=== PATIENT | male | born 1960 | race Caucasian/White ===

== ENCOUNTER 2016-12-29 14:22 | Emergency (ER) | payer BC, OTHER ==
[2016-12-29 14:49] VITALS: TEMP 98.3; O2SAT 97
--- NOTE | 2016-12-29 16:18 | RAD ---
PROCEDURE: Cervical Spine Radiographs. HISTORY: Pain. COMPARISON: None. FINDINGS: BONES: There is reversal the cervical curvature without fracture or spondylolisthesis identified. Multilevel spondylosis is castrate anteriorly at the mid to inferior cervical spine. No suspicious lytic or blastic changes are identified. The odontoid process appears intact. DISC SPACES: Diminished at C4-5, C5-6 and C6-7 is well C7-T1. SOFT TISSUES: Normal. No prevertebral soft tissue swelling. OTHER FINDINGS: None. IMPRESSION: Reversal of cervical curvature. No fracture or spondylolisthesis. Multilevel cervical spondylosis identified.
[2016-12-29] MEDS ORDERED: Naproxen 550 mg Tab PO STA (16:23)
[2016-12-29] MEDS ORDERED: Naproxen 550 mg Tab PO ONE (16:25)
--- NOTE | 2016-12-29 16:25 | C.PDOC ---
History Of Present Illness Patient c/o pain to the bilateral sides of neck and shoulders over the past several days. 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 Denies weakness, numbness, headache, or any other complaints. Time Seen by Provider: 12/29/16 14:54 Chief Complaint (Nursing): Back Pain History Per: Patient History/Exam Limitations: no limitations Onset/Duration Of Symptoms: Days (Several) Current Symptoms Are (Timing): Still Present Quality Of Discomfort: "Pain" Severity: Mild Associated Symptoms: denies: Incontinence, New Weakness, New Numbness Exacerbating Factor(s): Movement Recent travel outside of the [place]: No Additional History Per: Patient Past Medical History Reviewed: Historical Data, Nursing Documentation, Vital Signs Vital Signs: Last Vital Signs Temp 98.3 F 12/29/16 14:43 Pulse 82 12/29/16 16:25 Resp 18 12/29/16 16:25 BP 126/78 12/29/16 16:25 Pulse Ox 97 12/29/16 18:16 Family History: States: No Known Family Hx - Social History Hx Tobacco Use: Yes Hx Alcohol Use: No Hx Substance Use: No - Immunization History Hx Tetanus Toxoid Vaccination: No Hx Influenza Vaccination: No Review Of Systems Except As Marked, All Systems Reviewed And Found Negative. Musculoskeletal: Positive for: Neck Pain, Shoulder Pain Neurological: Negative for: Weakness, Numbness, Headache Physical Exam - Physical Exam Appears: Non-toxic, No Acute Distress, Other (Appears slightly kyphotic) Skin: Warm, Dry Head: Atraumatic, Normacephalic Eye(s): bilateral: Normal Inspection Oral Mucosa: Moist Neck: Normal ROM, No Midline Cervical Tenderness, Paracervical Tenderness ( Bilateral), No Step Off Deformity, Supple Cardiovascular: Rhythm Regular Respiratory: Normal Breath Sounds Extremity: Normal ROM Neurological/Psych: Oriented x3, Normal Speech, Normal Cognition, Normal Motor, Normal Sensation, Other (No focal deficit) Gait: Steady ED Course And Treatment O2 Sat by Pulse Oximetry: 97 (RA) Pulse Ox Interpretation: Normal - Other Rad XRAY Cervical spine X-Ray: Viewed By Me, Read By Radiologist Interpretation: PROCEDURE: Cervical Spine Radiographs. HISTORY: Pain. COMPARISON: None. FINDINGS: BONES: There is reversal the cervical curvature without fracture or spondylolisthesis identified. Multilevel spondylosis is castrate anteriorly at the mid to inferior cervical spine. No suspicious lytic or blastic changes are identified. The odontoid process appears intact. DISC SPACES: Diminished at C4-5, C5-6 and C6-7 is well C7-T1. SOFT TISSUES: Normal. No prevertebral soft tissue swelling. OTHER FINDINGS: None. IMPRESSION: Reversal of cervical curvature. No fracture or spondylolisthesis. Multilevel cervical spondylosis identified. Medical Decision Making Medical Decision Making: xrays are negative. Patient is ambulatory and without neuro deficits. Disposition - Disposition Referrals: Arnav Castro MD [Non-Staff] - Disposition: HOME/ ROUTINE Disposition Time: 16:23 Condition: GOOD Additional Instructions: Follow up with the medical doctor within 1-2 days. Return if worsened. Prescriptions: Cyclobenzaprine [Flexeril] 5 mg PO TID #21 tab Naproxen [Naprosyn] 500 mg PO BID #20 tab Instructions: Cervical Strain (DC) Forms: [facility] (Armenian), Work Excuse - Clinical Impression Clinical Impression: Cervical strain - Scribe Statement The provider has reviewed the documentation as recorded by the Scribe Gabby terrell All medical record entries made by the Scribe were at my direction and personally dictated by me. I have reviewed the chart and agree that the record accurately reflects my personal performance of the history, physical exam, medical decision making, and the department course for this patient. I have also personally directed, reviewed, and agree with the discharge instructions and disposition.
[2016-12-29 16:53] VITALS: BP 126/78; PULSE 82; RESP 18
== END 2016-12-29 16:30 | disposition home or self-care (01) ==
LOC: C.ER 14:22
DX: S16.1XXA Strain of muscle, fascia and tendon at neck level, initial encounter (principal); X58.XXXA Exposure to other specified factors, initial encounter

== ENCOUNTER 2017-07-16 10:47 | Emergency (ER) | payer BC ==
[2017-07-16] MEDS ORDERED: Naproxen 550 mg Tab PO STA (11:42)
[2017-07-16] MEDS ORDERED: Naproxen 550 mg Tab PO ONE (11:54)
--- NOTE | 2017-07-16 12:59 | RAD ---
Lumbar spine three views History: Low back pain. Comparison: None available. Findings: Minimal dextroscoliotic curvature of the upper lumbar spine. Mild paravertebral osteophytosis in the mid lower lumbar spine. Calcified phleboliths the pelvis. Question minimal retrolisthesis of T12 on L1. Disc space narrowing with some mild anterior osteophytosis within the lower thoracic and lower lumbar spine. Mild endplate sclerosis within the L2-3 level. Impression: Degenerative changes in the lumbar spine. If pain persists, consider MRI.
--- NOTE | 2017-07-16 13:03 | C.PDOC ---
History Of Present Illness 57 year old male presents to the ED for evaluation of lower back pain which has been intermittent for the past week. 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 Patient states he feels back stiffness when he wakes up. He denies recent falls/injuries , urinary/bowel incontinence leg pain, upper/lower extremity numbness/weakness. Time Seen by Provider: 07/16/17 11:22 Chief Complaint (Nursing): Back Pain History Per: Patient History/Exam Limitations: no limitations Onset/Duration Of Symptoms: Intermittent Episodes (1 week ) Current Symptoms Are (Timing): Still Present Quality Of Discomfort: "Pain" Previous Symptoms: Back Pain Associated Symptoms: denies: Incontinence, New Weakness, New Numbness Additional History Per: Patient Past Medical History Reviewed: Historical Data, Nursing Documentation, Vital Signs Vital Signs: Last Vital Signs Temp 98.6 F 07/16/17 13:08 Pulse 98 H 07/16/17 13:08 Resp 18 07/16/17 13:08 BP 140/86 07/16/17 13:08 Pulse Ox 98 07/16/17 21:31 - Medical History PMH: No Chronic Diseases Surgical History: No Surg Hx Family History: States: Unknown Family Hx - Social History Hx Tobacco Use: Yes Hx Alcohol Use: No Hx Substance Use: No - Immunization History Hx Tetanus Toxoid Vaccination: No Hx Influenza Vaccination: No Review Of Systems Except As Marked, All Systems Reviewed And Found Negative. Musculoskeletal: Positive for: Back Pain. Negative for: Leg Pain Neurological: Negative for: Weakness, Numbness Physical Exam - Physical Exam Appears: Non-toxic, No Acute Distress Skin: Normal Color, Warm, Dry, No Rash Head: Atraumatic, Normacephalic Eye(s): bilateral: Normal Inspection, PERRL, EOMI Oral Mucosa: Moist Neck: Normal ROM, No Midline Cervical Tenderness, No Paracervical Tenderness, Supple Chest: Symmetrical, No Deformity, No Tenderness Cardiovascular: Rhythm Regular, No Friction Rub, No Murmur Respiratory: Normal Breath Sounds, No Rales, No Rhonchi, No Wheezing Gastrointestinal/Abdominal: Normal Exam, Soft, No Tenderness, No Rebound Back: No Vertebral Tenderness (no midline tenderness), Muscle Spasm, Other ( right-sided paralumbar tenderness ) Extremity: Normal ROM, No Tenderness, Capillary Refill (less than 2 seconds ), No Deformity, No Swelling Neurological/Psych: Oriented x3, Normal Speech, Normal Cognition, Normal Sensation Gait: Steady ED Course And Treatment O2 Sat by Pulse Oximetry: 98 (on RA) Pulse Ox Interpretation: Normal - Other Rad Lumbar Spine XR X-Ray: Interpreted by Me, Viewed By Me, Read By Radiologist Interpretation: Lumbar spine three views. History: Low back pain. Comparison: None available. Findings: Minimal dextroscoliotic curvature of the upper lumbar spine. Mild paravertebral osteophytosis in the mid lower lumbar spine. Calcified phleboliths the pelvis. Question minimal retrolisthesis of T12 on L1. Disc space narrowing with some mild anterior osteophytosis within the lower thoracic and lower lumbar spine. Mild endplate sclerosis within the L2-3 level. Impression: Degenerative changes in the lumbar spine. If pain persists , consider MRI. Medical Decision Making Medical Decision Making: Prior Records Reviewed: Patient was evaluated in ED on 12/2016 for complaints of neck pain. Patient underwent a cervical spine XR which produced unremarkable results. Progress: LS Spine AP/Lat ordered and reviewed. (+) DDD, (-) fractures. Naproxen PO and Flexeril PO administered. On re-exam, the patient reports improvement of symptoms. Lungs are CTA, heart is RRR, abdomen is soft, non-tender and tolerating PO well. Ambulatory in the ED steady gait. Follow up with the medical doctor within 1-2 days. Return if worsened. Disposition - Disposition Referrals: [facility] [Outside] Disposition: HOME/ ROUTINE Disposition Time: 13:00 Condition: GOOD Additional Instructions: Follow up with the medical doctor/clinic within 1-2 days, Return if worsened. 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 - Scribe Statement The provider has reviewed the documentation as recorded by the Scribe (Kajal Reed) All medical record entries made by the Scribe were at my direction and personally dictated by me. I have reviewed the chart and agree that the record accurately reflects my personal performance of the history, physical exam, medical decision making, and the department course for this patient. I have also personally directed, reviewed, and agree with the discharge instructions and disposition.
[2017-07-16 13:09] VITALS: BP 140/86; PULSE 98; RESP 18; TEMP 98.6
[2017-07-16 14:36] VITALS: O2SAT 98
== END 2017-07-16 13:12 | disposition home or self-care (01) ==
LOC: C.ER 10:47
DX: M54.5 Low back pain (principal); Z72.0 Tobacco use

== ENCOUNTER 2018-03-02 10:23 | Emergency (ER) | payer BC ==
[2018-03-02 10:31] VITALS: BP 150/98; PULSE 95; RESP 20; TEMP 97.9; O2SAT 96
--- NOTE | 2018-03-02 10:49 | C.PDOC ---
History Of Present Illness 57 y/o male, w/PMhx of right knee injury s/p accident in 2017, presents to the ER complaining of left knee pain which has been present for the past 1.5 weeks. Patient states that he had a gradual onset of left knee pain on the joint line medially and laterally. Patient reports that the pain is worse with walking and in the morning on waking. He notes that he takes Alieve once daily and uses a knee brace without relief. He has not been evaluated for the pain by an orthopedist. He states that he is very active, he walks to most destinations and he help his friend with yardwork. Denies trauma, fever, chills, numbness, parasthesia, neck pain and back pain. Time Seen by Provider: 03/02/18 10:47 Chief Complaint (Nursing): Lower Extremity Problem/Injury History Per: Patient History/Exam Limitations: no limitations Onset/Duration Of Symptoms: Days Current Symptoms Are (Timing): Still Present Severity: Moderate Past Medical History Reviewed: Historical Data, Nursing Documentation, Vital Signs Vital Signs: Last Vital Signs Temp 97.9 F 03/02/18 10:25 Pulse 95 H 03/02/18 10:25 Resp 20 03/02/18 10:25 BP 150/98 H 03/02/18 10:25 Pulse Ox 96 03/02/18 10:25 - Medical History PMH: No Chronic Diseases Other Surgeries: Hx of surgeries Family History: States: No Known Family Hx - Social History Hx Tobacco Use: Yes Hx Alcohol Use: Yes Hx Substance Use: No - Immunization History Hx Tetanus Toxoid Vaccination: No Hx Influenza Vaccination: No Hx Pneumococcal Vaccination: No Review Of Systems Except As Marked, All Systems Reviewed And Found Negative. Constitutional: Negative for: Fever, Chills Cardiovascular: Negative for: Chest Pain, Palpitations Respiratory: Negative for: Cough, Shortness of Breath Gastrointestinal: Negative for: Nausea, Vomiting, Abdominal Pain Genitourinary: Negative for: Dysuria, Frequency, Incontinence Musculoskeletal: Positive for: Leg Pain (left knee pain). Negative for: Neck Pain, Back Pain Skin: Negative for: Rash, Bruising Neurological: Negative for: Weakness, Numbness, Headache Physical Exam - Physical Exam Appears: Non-toxic, No Acute Distress Skin: Normal Color, Warm, Dry Head: Atraumatic, Normacephalic Eye(s): bilateral: Normal Inspection Back: Normal Inspection, No Vertebral Tenderness, No Decreased ROM, No Muscle Spasm, No Paraspinal Tenderness Extremity: Normal ROM, Tenderness (left knee: mild tenderness to medial aspect of the joint line ), No Deformity, No Swelling (left knee), Other (left knee: mild crepitus, able to weight-bear) Pulses: Left Dorsalis Pedis: Normal, Right Dorsalis Pedis: Normal Neurological/Psych: Oriented x3, Normal Speech, Normal Cognition, Normal Cranial Nerves, No Cerebellar Signs, Normal Motor, Normal Sensation Gait: Steady ED Course And Treatment O2 Sat by Pulse Oximetry: 96 (RA) Pulse Ox Interpretation: Normal Medical Decision Making Medical Decision Making: Impression: Left Knee Pain Initial Plan: --X-Ray- Left Knee --Toradol 60 mg IM Xray negative for fracture On re-evaluation, pt feels much better, reports decreased pain. comfortable with discharge home with ortho followup. Impression: tendinopathy Plan: naproxen daily for pain knee brace ortho followup return if sx worsen Disposition - Disposition Referrals: Ale Yun MD [Staff Provider] - [facility] [Outside] Disposition: HOME/ ROUTINE Disposition Time: 12:00 Condition: GOOD Additional Instructions: Take Naproxen every morning with food as needed for pain Continue to use knee brace Apply heat pads to the area as needed Followup with orthopedics within 2 days Return to ED if symptoms worsen Prescriptions: Naproxen 500 mg PO DAILY PRN #30 tablet PRN Reason: Pain, Mild (1-3) Instructions: Tendinopathy (DC) Forms: [employer] (Israeli) - Clinical Impression Clinical Impression: Tendinitis - 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 - Scribe Statement The provider has reviewed the documentation as recorded by the Yoel Camarillo Provider Attestation All medical record entries made by the Yoel were at my direction and personally dictated by me. I have reviewed the chart and agree that the record accurately reflects my personal performance of the history, physical exam, medical decision making, and the department course for this patient. I have also personally directed, reviewed, and agree with the discharge instructions and di sposition.
--- NOTE | 2018-03-02 13:39 | RAD ---
PROCEDURE: Left Knee Radiographs. HISTORY: Left knee pain COMPARISON: No prior. FINDINGS: Examination limited by habitus. BONES: No acute displaced fracture. Degenerative changes including medial and lateral compartment joint space narrowing. JOINTS: No dislocation. JOINT EFFUSION: No significant joint effusion. OTHER FINDINGS: None. IMPRESSION: Degenerative changes.
== END 2018-03-02 12:48 | disposition home or self-care (01) ==
LOC: C.ER 10:23
DX: M76.9 Unspecified enthesopathy, lower limb, excluding foot (principal)
CPT/HCPCS: 73562; 96372; 99283; J1885

== ENCOUNTER 2018-03-11 12:11 | Emergency (ER) | payer BC ==
[2018-03-11 12:32] VITALS: PULSE 104
--- NOTE | 2018-03-11 12:59 | C.PDOC ---
History Of Present Illness 57 y/o male patient comes in for re-evaluation of his left knee pain. Patient reports the pain has occurred for a couple of weeks and is localized, worse with bending of the knee and walking up the stairs. Patient was seen on for the same complaint. He received an X-ray that shows no abnormalities and pain medications that provided relief. Patient did not receive a knee mobilizer last visit and is requesting for one. Patient denies weakness, loss of sensation and deformity. Time Seen by Provider: 03/11/18 12:32 Chief Complaint (Nursing): Lower Extremity Problem/Injury History Per: Patient History/Exam Limitations: no limitations Onset/Duration Of Symptoms: Days (several weeks) Current Symptoms Are (Timing): Still Present Past Medical History Reviewed: Historical Data, Nursing Documentation, Vital Signs Vital Signs: Last Vital Signs Temp 98.6 F 03/11/18 12:28 Pulse 104 H 03/11/18 12:28 Resp 18 03/11/18 12:28 BP 159/84 H 03/11/18 12:28 Pulse Ox 99 03/11/18 12:28 Family History: States: Unknown Family Hx - Social History Hx Tobacco Use: Yes Hx Alcohol Use: Yes (beer daily) Hx Substance Use: No - Immunization History Hx Tetanus Toxoid Vaccination: No Hx Influenza Vaccination: No Hx Pneumococcal Vaccination: No Review Of Systems Except As Marked, All Systems Reviewed And Found Negative. Musculoskeletal: Positive for: Leg Pain (left knee pain ) Neurological: Negative for: Weakness, Other (loss of sensation; deformity) Physical Exam - Physical Exam Appears: Well, Non-toxic, No Acute Distress Skin: Normal Color, Warm, No Rash, No Ecchymosis Head: Normacephalic Eye(s): bilateral: PERRL Extremity: Normal ROM (mild discofmort to Left knee flexion), Tenderness (mild diffuse left knee, no palpable deformity, no edema, no skin changes.), No Calf Tenderness (B/L), No Deformity, No Swelling Extremity: Bilateral: Atraumatic DTR: Knee (L): 2+ Neurological/Psych: Oriented x3, Normal Speech, Normal Motor, Normal Sensation, Normal Reflexes ED Course And Treatment O2 Sat by Pulse Oximetry: 99 (RA) Pulse Ox Interpretation: Normal Progress Note: Impression: re-evaluation of left knee pain. Plans: -- knee immbolizer. Reassess: On re-eval, pt is afebrile, hemodynamicaly stable. non- toxic. Left knee: exam c/a mild knee arthralgia, no defomrity. FAROM, no neurovascular deficits. Imaging review from previosu visit and appears normal. Knee immobilizer applied to left knee. Pt advised and ref. to f/u with Ortho in2 -3 days for re-eval. return if any new changes. Disposition Counseled Patient/Family Regarding: Diagnosis, Need For Followup - Disposition Referrals: [facility] [Outside] Disposition: HOME/ ROUTINE Disposition Time: 12:59 Condition: STABLE Additional Instructions: Knee immobilizer Follow up with Orthopedist in 2-3 days for re-evaluation. return to ED if any worsening or new changes. 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 - Scribe Statement The provider has reviewed the documentation as recorded by the Yoel Solis Do All medical record entries made by the Yoel were at my direction and personally dictated by me. I have reviewed the chart and agree that the record accurately reflects my personal performance of the history, physical exam, medical decision making, and the department course for this patient. I have also personally directed, reviewed, and agree with the discharge instructions and disposition.
[2018-03-11 14:03] VITALS: BP 138/89; RESP 20; TEMP 98.9
[2018-03-13 05:23] VITALS: O2SAT 99
== END 2018-03-11 14:07 | disposition home or self-care (01) ==
LOC: C.ER 12:11
DX: M25.562 Pain in left knee (principal)

== ENCOUNTER 2018-06-03 10:31 | Emergency (ER) | payer BC ==
[2018-06-03 10:38] VITALS: BP 142/91; PULSE 72; RESP 18; TEMP 98.2; O2SAT 100
--- NOTE | 2018-06-03 10:43 | C.PDOC ---
History Of Present Illness 58 y/o male pt presents to the ER c/o upper back pain for x2 days. Pt reports he feels muscle spasms and pain in his shoulders when he turns in bed. Pain is dull. Pt denies fall, trauma, chest pain, SOB, headache, fever, chills and cough. Time Seen by Provider: 06/03/18 10:39 Chief Complaint (Nursing): Upper Extremity Problem/Injury History Per: Patient History/Exam Limitations: no limitations Onset/Duration Of Symptoms: Days (x2) Current Symptoms Are (Timing): Still Present Quality: Dull Severity: Moderate Pain Scale Rating Of: 5 Exacerbating Factor(s): Other (lying in bed) Recent travel outside of the [place]: No Past Medical History Reviewed: Historical Data, Nursing Documentation, Vital Signs Vital Signs: Last Vital Signs Temp 98.2 F 06/03/18 10:35 Pulse 72 06/03/18 10:35 Resp 18 06/03/18 10:35 BP 142/91 H 06/03/18 10:35 Pulse Ox 100 06/03/18 10:35 - Medical History PMH: No Chronic Diseases Surgical History: No Surg Hx Family History: States: Unknown Family Hx - Social History Hx Tobacco Use: Yes Hx Alcohol Use: Yes (beer daily) Hx Substance Use: No - Immunization History Hx Tetanus Toxoid Vaccination: No Hx Influenza Vaccination: No Hx Pneumococcal Vaccination: No Review Of Systems Except As Marked, All Systems Reviewed And Found Negative. Constitutional: Negative for: Fever, Chills, Other (fall/trauma) Cardiovascular: Negative for: Chest Pain Respiratory: Negative for: Cough, Shortness of Breath Musculoskeletal: Positive for: Shoulder Pain, Back Pain (upper ) Neurological: Negative for: Headache Physical Exam - Physical Exam Appears: Non-toxic, No Acute Distress Skin: Warm, Dry Head: Normacephalic Eye(s): bilateral: Normal Inspection, EOMI Nose: Normal Oral Mucosa: Moist Throat: Normal Neck: Normal ROM, Supple Chest: Symmetrical Cardiovascular: Rhythm Regular Respiratory: Normal Breath Sounds Gastrointestinal/Abdominal: Soft, No Tenderness Back: No CVA Tenderness, No Vertebral Tenderness, Other (diffuse tenderness on upper back muscle ) Extremity: Normal ROM (shoulders ) Pulses: Left Radial: Normal, Right Radial: Normal Neurological/Psych: Oriented x3, Normal Speech, Normal Motor, Normal Sensation, Other (normal neuro ) ED Course And Treatment O2 Sat by Pulse Oximetry: 100 (RA) Pulse Ox Interpretation: Normal Disposition - Disposition Prescriptions: Methocarbamol [Robaxin] 1,000 mg PO BID 7 Days tab Naproxen [EC-Naprosyn] 500 mg PO BID 5 Days tablet. Instructions: Radiculopathy (DC) Forms: General Discharge Instructions, [facility] (Yemeni) - Clinical Impression Clinical Impression: Cervical radiculopathy - Scribe Statement The provider has reviewed the documentation as recorded by the Yoel Solis Do Provider Attestation: All medical record entries made by the Nanoibfernando were at my direction and personally dictated by me. I have reviewed the chart and agree that the record accurately reflects my personal performance of the history, physical exam, medical decision making, and the department course for this patient. I have also personally directed, reviewed, and agree with the discharge instructions and disposition.
--- NOTE | 2018-06-03 10:46 | C.PDOC ---
History Of Present Illness 58 y/o male pt presents to the ER c/o upper back pain for x2 days. Pt reports he feels muscle spasms and pain in his shoulders when he turns in bed. Pain is dull. Pt denies fall, trauma, chest pain, SOB, headache, fever, chills and cough. Time Seen by Provider: 06/03/18 10:39 Chief Complaint (Nursing): Upper Extremity Problem/Injury History Per: Patient History/Exam Limitations: no limitations Onset/Duration Of Symptoms: Days (x2) Current Symptoms Are (Timing): Still Present Quality: Dull Severity: Moderate Pain Scale Rating Of: 5 Exacerbating Factor(s): Nothing Recent travel outside of the [place]: No Past Medical History Reviewed: Historical Data, Nursing Documentation, Vital Signs Vital Signs: Last Vital Signs Temp 98.2 F 06/03/18 10:35 Pulse 72 06/03/18 10:35 Resp 18 06/03/18 10:35 BP 142/91 H 06/03/18 10:35 Pulse Ox 100 06/03/18 10:35 - Medical History PMH: No Chronic Diseases Surgical History: No Surg Hx Family History: States: Unknown Family Hx - Social History Hx Tobacco Use: Yes Hx Alcohol Use: Yes (beer daily) Hx Substance Use: No - Immunization History Hx Tetanus Toxoid Vaccination: No Hx Influenza Vaccination: No Hx Pneumococcal Vaccination: No Review Of Systems Except As Marked, All Systems Reviewed And Found Negative. Constitutional: Negative for: Fever, Chills Cardiovascular: Negative for: Chest Pain Respiratory: Negative for: Cough, Shortness of Breath Musculoskeletal: Positive for: Shoulder Pain, Back Pain (upper ) Neurological: Negative for: Other (fall/ trauma ) Physical Exam - Physical Exam Appears: Non-toxic, No Acute Distress Skin: Warm, Dry Head: Normacephalic Eye(s): bilateral: Normal Inspection, EOMI Nose: Normal Oral Mucosa: Moist Throat: Normal Neck: Normal ROM, Supple Chest: Symmetrical Cardiovascular: Rhythm Regular Respiratory: Normal Breath Sounds Gastrointestinal/Abdominal: Soft, No Tenderness Back: Normal Inspection, No CVA Tenderness, No Vertebral Tenderness, Other (diffuse tenderness to the upper back muscle ) Extremity: Normal ROM (shoulders ) Pulses: Left Radial: Normal, Right Radial: Normal Neurological/Psych: Oriented x3, Normal Speech, Normal Motor, Normal Sensation ED Course And Treatment O2 Sat by Pulse Oximetry: 100 (RA) Pulse Ox Interpretation: Normal Medical Decision Making Medical Decision Making: Impression: upper back pain Disposition Doctor Will See Patient In The: ED Counseled Patient/Family Regarding: Diagnosis - Disposition Disposition: HOME/ ROUTINE Disposition Time: 10:45 Condition: STABLE Prescriptions: Methocarbamol [Robaxin] 1,000 mg PO BID 7 Days tab Naproxen [EC-Naprosyn] 500 mg PO BID 5 Days tablet. Instructions: Radiculopathy (DC) Forms: [employer] ([place]i), General Discharge Instructions - POA Present On Arrival: None - Clinical Impression Clinical Impression: Cervical radiculopathy - Scribe Statement The provider has reviewed the documentation as recorded by the oYel Solis Do Provider Attestation: All medical record entries made by the Nanoibfernando were at my direction and personally dictated by me. I have reviewed the chart and agree that the record accurately reflects my personal performance of the history, physical exam, medical decision making, and the department course for this patient. I have also personally directed, reviewed, and agree with the discharge instructions and disposition.
== END 2018-06-03 10:56 | disposition home or self-care (01) ==
LOC: C.ER 10:31
DX: M54.12 Radiculopathy, cervical region (principal)